=== PATIENT | female | born 2000 | race Caucasian/White ===

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

== ENCOUNTER 2020-06-30 01:13 | Emergency (ER) | payer OTHER ==
[2020-06-30 01:56] LABS: APPEARANCE,URINE Clear (CLEAR); BILIRUBIN,URINE Small (NEGATIVE); COLOR,URINE Orange (YELLOW); GLUCOSE, URINE (UA) Negative (NEGATIVE); KETONES,URINE Negative (NEGATIVE); LEUKOCYTE ESTERASE ,URINE Small (NEGATIVE); NITRATE,URINE Positive (NEGATIVE); OCCULT BLOOD,URINE Negative (NEGATIVE); PROTEIN,URINE Trace mg/dL (NEGATIVE)
[2020-06-30 01:59] LABS: HCG,QUAL RESULT NEGATIVE (NEGATIVE)
[2020-06-30 02:10] LABS: BACTERIA,URINE Rare /HPF (None Seen); MUCUS,URINE Few LPF (None Seen); RBC,URINE 0-1 /HPF (0-1); SQUAMOUS EPITHELIAL CELL,UR Rare /HPF (0-2)
[2020-06-30] MEDS ORDERED: CEFTRIAXONE SODIUM 500 MG VIAL ONE (02:18)
[2020-06-30] MEDS ORDERED: AZITHROMYCIN 250 MG TABLET PO ONE (02:18)
[2020-06-30] MEDS ORDERED: DOXYCYCLINE HYCLATE 100 MG TABLET PO ONE (02:49)
== END 2020-06-30 03:14 | disposition home or self-care (01) ==
LOC: EDH 01:13
DX: N39.0 Urinary tract infection, site not specified (principal); N72 Inflammatory disease of cervix uteri; N76.0 Acute vaginitis; J45.909 Unspecified asthma, uncomplicated
CPT/HCPCS: 81001; 81025; 87088; 87486; 87797; 96372; 99284; J0696